=== PATIENT | female | born 1995 | race Caucasian/White ===

== ENCOUNTER 2021-10-08 00:50 | Emergency (ER) | payer OTHER ==
[~2021-10-08] VITALS: Ht 167.6 cm; Wt 108.9 kg
[2021-10-08 00:51] VITALS: BP 118/79
--- NOTE | 2021-10-08 01:03 | NUR ---
26 YO/F BIB SELF W C/O GENERALIZED ABDOMINAL PRESSURE/SHARP PAIN 7/10 INTERMITENT X3DAYS, NOW RADIATING TO BACK, +NAUSEA. PT ALSO REPORTS SOME SOB FROM FEELING ANXIOUS ABOUT THE PAIN, DENIES CHEST PAIN. PT DENIES ANY FEVERS/CHILLS, V/D/C, OR URINARY SYMPTOMS. PT SITTING ON BED LOCKED ON LOWEST POSITION. BREATHING EVEN AND UNLABORED. NAD NOTED, WILL CONTINUE TO MONITOR. PMH: DENIES ALLERGIES: DENIES
[2021-10-08] MEDS ORDERED: ONDANSETRON 4 MG ODT PO ONE (01:40)
[2021-10-08] MEDS ORDERED: KETOROLAC 15 MG/ML VIAL IM ONE (01:40)
[2021-10-08 01:49] LABS: APPEARANCE,URINE CLEAR (CLEAR); BILIRUBIN,URINE NEGATIVE (NEGATIVE); BLOOD, URINE 3+ (NEGATIVE); COLOR,URINE YELLOW (YELLOW); LEUKOCYTE ESTERASE ,URINE TRACE (NEGATIVE); NITRITE, URINE NEGATIVE (NEGATIVE); UGLUCOSE NEGATIVE (NEGATIVE)
[2021-10-08 02:07] LABS: RBC,URINE 20-50 /HPF (0-5)
[2021-10-08 02:08] LABS: WBC,URINE 0-5 /HPF (0-5)
--- NOTE | 2021-10-08 02:12 | NUR ---
PT REPORTS PAIN AND NAUSEA IMPROVEMENT.
[2021-10-08] MEDS ORDERED: IBUP-2213 PO (02:51)
[2021-10-08 03:05] VITALS: BP 118/69
== END 2021-10-08 03:05 | disposition home or self-care (01) ==
LOC: MED 00:50
DX: D25.9 Leiomyoma of uterus, unspecified (principal); N92.0 Excessive and frequent menstruation with regular cycle; R10.2 Pelvic and perineal pain
CPT/HCPCS: 81001; 81025; 87086; 96372; 99283; J1885; Q0162

== ENCOUNTER 2021-10-08 21:52 | Emergency (ER) | payer OTHER ==
[~2021-10-08] VITALS: Ht 167.6 cm; Wt 108.9 kg
[~2021-10-08 21:52] MED LIST: IBUP-2213 PO
[2021-10-08 21:59] VITALS: BP 127/69
[2021-10-08] MEDS ORDERED: ONDANSETRON 4 MG/2 ML VIAL IVP ONE (22:55)
[2021-10-08] MEDS ORDERED: NACL 0.9% 1,000 ML IV SCH (22:55)
[2021-10-08] MEDS ORDERED: MORPHINE SULFATE 2 MG/ML SYR IVP ONE (22:55)
[2021-10-08 23:13] LABS: BASOPHILS # (AUTO) 0.1 K/uL (0.00-0.22); BASOPHILS % (AUTO) 0.7 % (0.0-2.0); EOSINOPHILS # (AUTO) 0.3 K/uL (0-0.4); EOSINOPHILS % (AUTO) 2.9 % (0.0-4.0); HEMATOCRIT 33.4 % (36-48); HEMOGLOBIN 11.3 g/dL (12.0-16.0); LYMPHOCYTES # (AUTO) 2.7 K/uL (2.5-16.5); LYMPHOCYTES % (AUTO) 31.7 % (20.5-51.1); MEAN CORPUSCULAR HEMOGLOBIN 29 pg (27-31); MEAN CORPUSCULAR HGB CONC 34 g/dL (33-37); MEAN CORPUSCULAR VOLUME 86.6 fL (80-94); MONOCYTES # (AUTO) 0.5 K/uL (0.8-1.0); MONOCYTES % (AUTO) 5.8 % (1.7-9.3); NEUTROPHILS # (AUTO) 5.1 K/uL (1.8-7.7); NEUTROPHILS % (AUTO) 58.9 % (42.2-75.2); PLATELET COUNT (AUTO) 334 K/uL (140-450); RED BLOOD CELL COUNT(AUTO) 3.85 MIL/uL (4.20-5.40); RED CELL DISTRIBUTION WIDTH 14.9 % (11.6-13.7); WHITE BLOOD COUNT (AUTO) 8.6 K/uL (4.8-10.8)
--- NOTE | 2021-10-08 23:23 | NUR ---
PT RETURN FROM RADIOLOGY TO ER BED 5
--- NOTE | 2021-10-08 23:35 | NUR ---
26 YO/F BIB SELF W C/O EPIGASTRIC PAIN 10/ BURNING/PRESSURE CONSTANT X3 HOURS RADIATING TO R SIDED CHEST AND LOWER ABDOMEN, + NAUSEA S/P EATING FRIES. PT WAS HERE YESTERDAY FOR SAME SYMPTOMS WHICH RESOLVED BUT BEGAN AGAIN AFTER EATING THE FRIES. PT DENIES ANY SOB, FEVER, VOMITING, DIARRHEA, CONSTIPATION OR URINARY SYMPTOMS. PT LAYING IN BED LOCKED IN LOWEST POSITION W X1 SIDERAWIL UP. BREATHING EVEN AND UNLABORED. WIOLL CONTINUE TO MONITOR. PMH: DENIES ALLERGIES: DENIES
[2021-10-08 23:39] LABS: ALBUMIN 3.8 g/dL (3.4-5.0); ANION GAP 8.2 (8-16); CARBON DIOXIDE 29.5 mmol/L (21-32); CREATININE 0.7 mg/dL (0.6-1.3); POTASSIUM 4.7 mmol/L (3.5-5.1); TOTAL BILIRUBIN 0.3 mg/dL (0.0-1.0)
[2021-10-09] MEDS ORDERED: PANTOPRAZOLE 40 MG INJ VIAL IVP ONE (00:05)
--- NOTE | 2021-10-09 00:46 | NUR ---
PT REPORTS PAIN HAS RESOVED AT THIS TIME.
--- NOTE | 2021-10-09 00:46 | NUR ---
PT AMBULATORY TO BATHRROM W STEADY GAIT.
[2021-10-09 01:12] VITALS: BP 114/54
--- NOTE | 2021-10-09 01:12 | NUR ---
Patient discharged with v/s stable. Written and verbal after care instructions given and explained. Patient verbalized understanding. Ambulatory with steady gait. All questions addressed prior to discharge. Advised to follow up with PMD.
== END 2021-10-09 01:12 | disposition home or self-care (01) ==
LOC: MED 21:52
DX: K80.80 Other cholelithiasis without obstruction (principal)
CPT/HCPCS: 36415; 76705; 80053; 83690; 84703; 85025; 96361; 96374; 96375; 99284; C9113; J2270; J2405; Q0092; J7030